=== PATIENT | male | born 1970 | race African-American/Black ===

== ENCOUNTER 2021-01-19 03:19 | Inpatient (IN) | payer OTHER ==
[2021-01-19] MEDS ORDERED: Morphine 4 MG/ML VIAL SLOW IVP SCH (06:15)
[2021-01-19] MEDS ORDERED: niCARdipine 25 MG in Sodium Chloride 0.9% 250 ML 240 ML IVPB SCH (06:15)
[2021-01-19] MEDS: niCARdipine 20MG In NaCl 20 MG/200 ML BAG IVPB SCH ×2 (06:38→08:43)
[2021-01-19 07:02] LABS: PTT 27.6 sec (22.0-33.0); Prothrombin Time 11.5 sec (9.5-12.1)
[2021-01-19 07:11] LABS: Anion Gap 15 mmol/L (10-20); BUN (Urea Nitrogen) 20 mg/dL (8.9-20.6); Calc. Creatinine Clearance 47 mL/min (70-130); Calcium 9.5 mg/dL (7.8-10.44); Carbon Dioxide 23 mmol/L (22-29); Chloride 107 mmol/L (98-107); Glucose 150 mg/dL (70-105); Potassium 3.2 mmol/L (3.5-5.1); Sodium 142 mmol/L (136-145)
[2021-01-19 07:15] LABS: Troponin I 0.065 ng/mL (< 0.028)
[2021-01-19] MEDS ORDERED: HYDROcodone/Acetaminophen 7.5/325 mg Tablet PO PRN (07:46)
[2021-01-19] MEDS ORDERED: Acetaminophen 325 MG TAB PO PRN (07:46)
[2021-01-19] MEDS ORDERED: Ondansetron PF 4 MG/2 ML Vial IVP PRN (07:46)
[2021-01-19] MEDS ORDERED: Bisacodyl 5 MG TAB PO PRN (07:46)
[2021-01-19] MEDS ORDERED: Aspirin 325 MG TAB PO SCH (08:00)
[2021-01-19 08:54] LABS: Cardiac Risk 4.1 (Less than 4.5)
[2021-01-19] MEDS: Famotidine 20 MG TAB PO SCH (09:20)
[2021-01-19] MEDS: Carvedilol 6.25 MG TAB PO SCH ×2 (09:20→17:13)
[2021-01-19] MEDS: Enoxaparin Sodium 40 MG/0.4 ML SYRINGE SC SCH (09:21)
[2021-01-19] MEDS: Nicotine 14 MG PATCH TD SCH ×2 (09:25→09:33)
[2021-01-19 10:04] LABS: Troponin I 0.155 ng/mL (< 0.028)
[2021-01-19 10:32] LABS: Bilirubin Neg (Negative); Blood, Urine 25 (Negative); Clarity Clear (Clear); Glucose, Urine (Dipstick) 50 mg/dL (Negative); Ketone, Urine Negative (Negative); Leukocyte Negative (Negative); Nitrite Negative (Negative); Protein, Urine (Dipstick) 100 mg/dl (Neg-Trace)
[2021-01-19 10:42] LABS: Amphetamine Not Detected (NotDetected); Barbiturates Screen Not Detected (NotDetected); Benzodiazepine Screen Not Detected (NotDetected); Cocaine Metabolite Screen Not Detected (NotDetected); Methadone Not Detected (NotDetected); Methamphetamine Not Detected (NotDetected); Opiate Screen Detected (NotDetected); Oxycodone Screen Not Detected (NotDetected); Phencyclidine (PCP) Not Detected (NotDetected); THC/Cannabinoid Screen Detected (NotDetected); Tricyclic Screen Not Detected (NotDetected)
[2021-01-19 10:49] LABS: Bacteria/HPF None Seen HPF (None Seen); RBC/HPF 0-3 HPF (0-3); Squamous Epithelial None Seen HPF (0-3); WBC/HPF 0-3 HPF (0-3)
[2021-01-19] MEDS: niCARdipine 50 MG in Sodium Chloride 0.9% 250 ML 230 ML IV SCH ×2 (11:01→16:12)
[2021-01-19 14:12] LABS: Hemoglobin A1c 6.2 % (4.0-6.0)
[2021-01-19] MEDS ORDERED: Amlodipine 10 MG TAB PO SCH (18:15)
[2021-01-19] MEDS ORDERED: hydrALAZINE 20 MG/ML VIAL SLOW IVP PRN (20:08)
[2021-01-20 04:40] LABS: Anion Gap 13 mmol/L (10-20); BUN (Urea Nitrogen) 18 mg/dL (8.9-20.6); Calc. Creatinine Clearance 52 mL/min (70-130); Calcium 8.9 mg/dL (7.8-10.44); Carbon Dioxide 24 mmol/L (22-29); Chloride 109 mmol/L (98-107); Glucose 96 mg/dL (70-105); Potassium 3.4 mmol/L (3.5-5.1); Sodium 143 mmol/L (136-145)
[2021-01-20 04:46] LABS: #Eosinphils 0.2 10x3/uL (0.0-0.5); #Monocytes 0.5 10x3/uL (0.0-1.1); #Neutrophils 4.3 10x3/uL (1.5-8.4); %Basophils 0.3 % (0.0-2.0); %Eosinophils 2.5 % (0.0-6.0); %Lymphocytes 29.9 % (18.0-47.0); %Monocytes 6.7 % (0.0-10.0); %Neutrophils 60.3 % (40.0-75.0); Hemoglobin 14.2 g/dL (13.5-17.5); Mean Corpuscular HGB CONC 33.9 g/dL (32.0-36.0); Mean Corpuscular Hemoglobin 30.1 pg (27.0-33.0); Mean Corpuscular Volume 88.8 fl (81.2-95.1); Mean Platelet Volume 11.4 fl (7.4-10.4); Platelet Count 185 10x3/uL (150-450); RBC Distribution Width 13.8 % (11.5-14.5); Red Blood Cell (RBC) Count 4.72 10x6/uL (4.32-5.72); White Blood Cell (WBC) Count 7.2 10x3/uL (3.5-10.5)
[2021-01-20] MEDS: Enoxaparin Sodium 40 MG/0.4 ML SYRINGE SC SCH (07:48)
[2021-01-20] MEDS: Amlodipine 10 MG TAB PO SCH (07:48)
[2021-01-20] MEDS: Carvedilol 12.5 MG TAB PO SCH ×2 (07:48→17:07)
[2021-01-20] MEDS: Famotidine 20 MG TAB PO SCH (07:48)
[2021-01-20] MEDS: Nicotine 14 MG PATCH TD SCH (09:38)
[2021-01-20] MEDS ORDERED: hydrALAZINE 25 MG TAB PO SCH (11:45)
[2021-01-20] MEDS ORDERED: Labetalol HCl 100 MG/20 ML VIAL SLOW IVP PRN (14:53)
[2021-01-20] MEDS: hydrALAZINE 25 MG TAB PO SCH ×2 (15:18→20:13)
[2021-01-21 05:54] VITALS: BMI 31.4
[2021-01-21] MEDS: Nicotine 14 MG PATCH TD SCH (07:19)
[2021-01-21 07:53] VITALS: TEMP 98.6
[2021-01-21] MEDS ORDERED: Carvedilol 25 MG TAB PO SCH (08:00)
[2021-01-21] MEDS: Amlodipine 10 MG TAB PO SCH (08:15)
[2021-01-21] MEDS: Famotidine 20 MG TAB PO SCH (08:15)
[2021-01-21] MEDS: Enoxaparin Sodium 40 MG/0.4 ML SYRINGE SC SCH (08:16)
[2021-01-21] MEDS: hydrALAZINE 25 MG TAB PO SCH (08:16)
[2021-01-21 09:58] VITALS: BP 143/100
== END 2021-01-21 10:10 | DRG 282 ==
LOC: CSHICU 05:52 → INTOOBSV 05:52 → OBSVTOIN 01-20 15:01
PROVIDERS: ADMIT Family Medicine; ATTEND Hospitalist
DX: I21.A1 Myocardial infarction type 2 (principal); I16.0 Hypertensive urgency; I12.9 Hypertensive chronic kidney disease with stage 1 through stage 4 chronic kidney disease, or unspecified chronic kidney disease; N18.30 Chronic kidney disease, stage 3 unspecified; Z87.891 Personal history of nicotine dependence; Z91.19 Patient's noncompliance with other medical treatment and regimen; E11.22 Type 2 diabetes mellitus with diabetic chronic kidney disease
CPT/HCPCS: 36415; 70450; 80048; 80061; 80306; 81001; 83036; 83735; 85025; 85610; 85730; 93005; 93010; 93306; 96372; 96374; 96375; 96376; G0378; J0360; J1650; J2270; J7050